=== PATIENT | female | born 1960 | race African-American/Black ===

== ENCOUNTER → 2017-08-05 | Outpatient (CLI) | payer BC ==
[2017-08-05 19:54] LABS: CALCIUM 9.9 mg/dL (8.4-10.2); CREATININE, serum 1.24 mg/dL (0.52-1.25); POTASSIUM 3.5 mmol/L (3.4-5.0)
== END ==
LOC: COL.LAB 08-04 17:19
DX: R79.89 Other specified abnormal findings of blood chemistry (principal)

== ENCOUNTER → 2017-10-10 | Outpatient (CLI) | payer BC ==
[2017-10-10 19:29] LABS: CREATININE, serum 1.25 mg/dL (0.52-1.25); URIC ACID 9.1 mg/dL (2.5-6.2)
== END ==
LOC: COL.RAD 18:49 → COL.LAB 18:49
DX: E79.0 Hyperuricemia without signs of inflammatory arthritis and tophaceous disease (principal); M25.50 Pain in unspecified joint

== ENCOUNTER 2018-07-17 09:17 | Emergency (ER) | payer BC ==
[~2018-07-17] VITALS: Ht 167.6 cm; Wt 127.3 kg
[2018-07-17 09:24] VITALS: BP 123/79; TEMP 98.1
[2018-07-17] MEDS ORDERED: LEVEMIR100 U/ML SQ (09:45)
[2018-07-17] MEDS ORDERED: NOVOLOG 100U100 U/M1 SQ (09:46)
[2018-07-17] MEDS ORDERED: COZAAR100 MG PO (09:47)
[2018-07-17] MEDS ORDERED: PRAVACHOL 40MG40 MG PO (09:47)
[2018-07-17] MEDS ORDERED: NORVASC 5MG5 MG/TAB PO (09:48)
[2018-07-17] MEDS ORDERED: ASPIRIN 81M81 MG/TA2 PO (09:48)
[2018-07-17] MEDS ORDERED: HCTZ 25MG TAB25 MG PO (09:48)
[2018-07-17] MEDS ORDERED: ZOLOFT 50MG50 MG PO (09:49)
[2018-07-17] MEDS ORDERED: CELEBREX 200MG200 MG PO (09:49)
[2018-07-17] MEDS ORDERED: PROTONIX 40MG T40 MG PO (09:50)
[2018-07-17] MEDS ORDERED: NORCO 325 MG-51 TAB PO (09:50)
[2018-07-17] MEDS ORDERED: FLEXERIL 1010 MG/TAB PO (11:37)
[2018-07-17] MEDS ORDERED: MOBIC 7.5MG7.5 MG PO (11:37)
[2018-07-17 12:00] VITALS: PULSE 73
== END 2018-07-17 12:01 | disposition home or self-care (01) ==
LOC: COL.ER 09:17
DX: M54.2 Cervicalgia (principal); M62.838 Other muscle spasm; E11.9 Type 2 diabetes mellitus without complications; I10 Essential (primary) hypertension; Z90.710 Acquired absence of both cervix and uterus; Z87.891 Personal history of nicotine dependence; Z79.4 Long term (current) use of insulin; Z79.82 Long term (current) use of aspirin
CPT/HCPCS: J1885

== ENCOUNTER → 2019-08-24 | Outpatient (CLI) | payer BC ==
[~2019-08-24] MED LIST: ASPIRIN 81M81 MG/TA2 PO; CELEBREX 200MG200 MG PO; COZAAR100 MG PO; FLEXERIL 1010 MG/TAB PO; HCTZ 25MG TAB25 MG PO; LEVEMIR100 U/ML SQ; MOBIC 7.5MG7.5 MG PO; NORCO 325 MG-51 TAB PO; NORVASC 5MG5 MG/TAB PO; NOVOLOG 100U100 U/M1 SQ; PRAVACHOL 40MG40 MG PO; PROTONIX 40MG T40 MG PO; ZOLOFT 50MG50 MG PO
[2019-08-24 17:30] LABS: ALBUMIN 4.6 gm/dL (3.5-5.0); BILIRUBIN,TOTAL 0.6 mg/dL (0.0-1.0); CALCIUM 9.9 mg/dL (8.4-10.2); CHOLESTEROL RISK RATIO 3.9; CREATININE, serum 1.81 (0.52-1.25); POTASSIUM 3.5 mmol/L (3.4-5.0); TOTAL PROTEIN 8.5 gm/dL (6.4-8.2); URIC ACID 11.5 mg/dL (2.5-6.2)
[2019-08-24 17:59] LABS: TSH w REFLEX 1.97 uIU/mL (0.465-4.680)
[2019-08-27 13:12] LABS: URINE MICROALBUMIN 1.1 mg/dL (0.0-1.7)
== END ==
LOC: COL.LAB 16:32
DX: I10 Essential (primary) hypertension (principal); E66.9 Obesity, unspecified; M10.9 Gout, unspecified; E78.2 Mixed hyperlipidemia; E11.9 Type 2 diabetes mellitus without complications

== ENCOUNTER 2021-06-01 15:29 | Emergency (ER) | payer BC ==
[~2021-06-01] VITALS: Ht 167.6 cm; Wt 130.9 kg
[2021-06-01 15:42] VITALS: TEMP 98.7
[2021-06-01 16:51] LABS: COLLECTION METHOD CLEAN CATCH
[2021-06-01 16:59] LABS: BASO # 0.1 K/mm3 (0.0-0.2); BASO % 0.6 % (0.0-2.0); EOS # 0.2 K/mm3 (0.0-0.7); EOS % 1.7 % (0.0-4.0); GRAN % 77.9 % (42.2-75.2); HEMOGLOBIN 12.8 g/dl (12.5-16.0); LYMPH # 1.6 K/mm3 (1.2-3.4); LYMPH % 15.5 % (20.0-51.0); MEAN CELL VOLUME 85 fl (80.0-100.0); MEAN CORPUSCULAR HEMOGLOBIN 28 pg (27-31); MEAN CORPUSCULAR HGB CONC 33 g/dl (33.0-37.0); MEAN PLATELET VOLUME 9.9 fl (7.4-10.4); MONO # 0.4 K/mm3 (0.1-0.6); MONO % 3.8 % (1.7-9.3); PLATELET COUNT 290 K/mm3 (130-400); RED BLOOD COUNT 4.58 M/mm3 (4.10-5.30); REDCELL DISTRIBUTION WIDTH-CV 13.9 % (11.5-14.5)
[2021-06-01 17:05] LABS: PH 5 (5-8); SQUAMOUS EPITHELIAL 0-2 /hpf (0-10); URINE APPEARANCE Clear (CLEAR/HAZY); URINE BACTERIA Rare /hpf (NONE SEEN); URINE BILIRUBIN Negative (NEGATIVE); URINE BLOOD Negative (NEGATIVE); URINE COLOR Straw (YELLOW); URINE GLUCOSE Negative (NEGATIVE); URINE KETONE Negative (NEGATIVE); URINE LEUKOCYTE ESTERASE Negative (NEGATIVE); URINE NITRATE Negative (NEGATIVE); URINE PROTEIN(semi-quant) Negative (NEGATIVE); URINE RBC None Seen /hpf (0-2); URINE UROBILINOGEN Negative (NEGATIVE)
[2021-06-01 17:16] LABS: ALBUMIN 4.1 gm/dL (3.4-4.8); BILIRUBIN,TOTAL 0.4 mg/dL (0.2-1.2); C-REACTIVE PROTEIN 0.66 mg/dL (0.00-0.50); CALCIUM 9.5 mg/dL (8.4-10.2); CREATININE, serum 1.48 mg/dL (0.57-1.11); POTASSIUM 3.5 mmol/L (3.5-4.5); TOTAL PROTEIN 7.7 gm/dL (6.2-8.1)
[2021-06-01] MEDS ORDERED: MEDROL 4MG DOSPA4 MG PO (17:56)
[2021-06-01 18:13] VITALS: BP 123/67; PULSE 72
== END 2021-06-01 18:13 | disposition home or self-care (01) ==
LOC: COL.ER 15:29
PROVIDERS: Emergency Medicine
DX: M54.50 Low back pain, unspecified (principal)
CPT/HCPCS: J1885; J2405; J3010; J7030; J7512